=== PATIENT | female | born 1995 | race Caucasian/White ===

== ENCOUNTER 2019-02-03 12:27 | Inpatient (IN) | payer MEDICAID ==
[2019-02-03] MEDS ORDERED: LACTATED RINGERS 1,000 ML IV ONE (13:04)
[2019-02-03] MEDS ORDERED: LACTATED RINGERS 1,000 ML ONE ×2 (13:07→16:50)
--- NOTE | 2019-02-03 14:07 | Event Note ---
Date: 02/03/19 Speaks little mongolian, water/wastewater project manager at bedside, patient complains of contractions since early am and spotting, she has not had sex since 10/2018. Denies ROM. Cervix 1,scant old dark blood on glove, Cat 1 fht's. UC's irregular. GLORIA 03/02/2019 EGA 36 /7wga. IVF hydration, check US for abruption, CBC T7S, observe closely.
[2019-02-03 14:41] LABS: Hematocrit 33.9 % (30.3-42.9); Mean Corpuscular HGB Conc 32 % (30-34); Mean Corpuscular Volume 87 fl (79-97); Platelet Count 120 K/mm3 (140-440); Red Cell Distribution Width 14.3 % (13.2-15.2)
[2019-02-03 15:31] LABS: Bacteria,Urine 1+ /HPF (Negative); Bilirubin,Urine NEG (Negative); Blood,Urine LG (Negative); Color,Urine Yellow (Yellow); Urobilinogen,Urine < 2.0 mg/dL (<2.0)
--- NOTE | 2019-02-03 16:26 | Ultrasound Report ---
Limited OB Ultrasound HISTORY: patient with vaginal bleeding. TECHNIQUE: Grayscale and color Doppler imaging performed. COMPARISON: None FINDINGS: There is a single intrauterine gestation which is cephalic in presentation. MEGGAN is 14.5. Pl acenta is right lateral with no evidence of placenta previa. Heart rate is 133 bpm. Imaging to determ ine the age was not performed. IMPRESSION: Single viable intrauterine gestation as above. Signer Name: Shane Maldonado MD Signed: 02/03/2019 4:22 PM Workstation Name: [id number]
[2019-02-03] MEDS ORDERED: BRETHINE ONE (17:11)
[2019-02-03] MEDS ORDERED: REGLAN IV ONE (17:12)
[2019-02-03] MEDS ORDERED: BICITRA PO ONE (17:12)
[2019-02-03] MEDS ORDERED: PEPCID IV ONE (17:12)
--- NOTE | 2019-02-03 17:20 | History and Physical Report ---
History of Present Illness Date of examination: 02/03/19 (called to Triage pt c/o worsening pain) History of present illness: EDC Calculations LMP: 03/26/2019 Past History : 2 Term Births: 1 Premature Births: 0 Living Children: 1 Para: 1 Mult. Births: 0 Prev : 1 Aborta: 0 Elect. Ab: 0 Spont. Ab: 0 Ectopics: 0 # 1 Delivery date: 11/05/2016 Weeks Gestation: 38 labor: no Delivery type: Hours of labor: 18 Anesthesia type: epidural Delivery location: [facility] Sex: Male weight: 7-? Name: Rashad Comments: Pre-eclampsia/PROM Past Medical History: Negative Past Medical History Past Surgical History: (2016) Social History: Marital Status: Children: 1 Occupation: unemployed Risk Factors: Smoked Tobacco Use: Never smoker Drug use: no HIV high-risk behavior: low risk Alcohol use: no Past Medical History Surgery (Non-ext js developer): (2016) Abnormal PAP: negative Uterine Anomaly: negative Social Hx: Marital Status: Children: 1 Occupation: unemployed Infection History Hx of STD: none HIV Risk Eval: low risk Personal hx. of genital herpes: no Genetic History Congenital Heart Defect: Dad: unknown Jace Disease: Dad: unknown Thalassemia Dad: unknown Neural Tube Defect Dad: unknown Down's Syndrome Dad: unknown Jacob-Sachs Dad: unknown Sickle Cell Disease/Trait Dad: unknown Hemophilia Dad: unknown Muscular Dystrophy Dad: unknown Cystic Fibrosis Dad: unknown Joanne Chorea Dad: unknown Mental Retardation Dad: unknown Fragile X Dad: unknown Other Genetic/Chromosomal Disorder Dad: unknown Child w/other defect Dad: unknown Enviromental Exposures Xray Exposure: no Medication, drug, or alcohol use since LMP: no Chemical/Other Exposure: no Exposure to Cat Liter: no Active Medications (reviewed today): None Current Allergies (reviewed today): No known allergies Past History - Obstetrical History Expected Date of Delivery: 03/02/19 Actual Gestation: 36 Week(s) 1 Day(s) : 2 Para: 1 (PROM, Pre-E section) Hx # Term Pregnancies: 1 Number of Pregnancies: 0 Spontaneous Abortions: 0 Induced : 0 Number of Living Children: 1 Medications and Allergies Allergies Allergy/AdvReac Type Severity Reaction Status Date / Time No Known Allergies Allergy Unverified 02/03/19 13:04 Home Medications Medication Instructions Recorded Confirmed Last Taken Type No Known Home Medications [No 02/03/19 02/03/19 Unknown History Reported Home Medications] Active Meds: Active Medications Citric Acid/Sodium Citrate (Bicitra) 30 ml PO ONCE ONE Stop: 02/03/19 17:13 Famotidine (Pepcid) 20 mg IV ONCE ONE Stop: 02/03/19 17:13 Oxytocin/Sodium Chloride (Pitocin/Ns 20 Unit/1000ml Drip) 20 units in 1,000 mls @ 0 mls/hr IV TITR MOHIT Lactated Ringer's (Lactated Ringers) 1,000 mls @ 2,250 mls/hr IV PREOP MOHIT Stop: 02/04/19 18:27 Metoclopramide HCl (Reglan) 10 mg IV ONCE ONE Stop: 02/03/19 17:13 - Vital Signs Vital signs: Vital Signs Pulse BP 63 139/67 02/03/19 12:43 02/03/19 12:43 Temp Pulse Resp BP Pulse Ox 98.9 F 59 L 117/58 02/03/19 12:50 02/03/19 16:58 02/03/19 16:58 - Physical Exam Breasts: Positive: deferred Cardiovascular: Regular rate Lungs: Positive: Normal air movement Abdomen: Positive: normal appearance, soft, normal bowel sounds Genitourinary (Female): Positive: normal external genitalia Vagina: Positive: normal moisture Uterus: Positive: normal size Extremities: Positive: edema Deep Tendon Reflex Grade: Normal +2 - Obstetrical FHR: category 2 Uterine Contraction Monitor Mode: External Cervical Dilatation: 4 (blood tinged fluid Overall clear fluid) Cervical Effacement Percentage: 90 station: -1 Uterine Contraction Pattern: Irregular Uterine Tone Measurement Phase: Resting Uterine Contraction Intensity: Moderate Results Result Diagrams: 02/03/19 14:13 Abnormal lab results 02/03/19 02/03/19 Range/Units 14:13 15:15 Plt Count 120 L (140-440) K/mm3 Urine pH 8.0 H (5.0-7.0) All other labs normal. HBsAg Screen Negative Negative *1 RPR Non Reactive Non Reactive *2 Rubella Antibodies, IgG [L] <0.90 index Immune >0.99 *3 Non-immune <0.90 Equivocal 0.90 - 0.99 Immune >0.99 ABO Grouping O *4 Rh Factor Positive *5 Please note: Prior records for this patient's ABO / Rh type are not available for additional verification. Antibody Screen Negative Negative *6 WBC 7.5 x10E3/uL 3.4-10.8 *7 RBC 4.01 x10E6/uL 3.77-5.28 *8 Hemoglobin 11.1 g/dL 11.1-15.9 *9 Hematocrit 34.6 % 34.0-46.6 *10 MCV 86 fL 79-97 *11 MCH 27.7 pg 26.6-33.0 *12 MCHC 32.1 g/dL 31.5-35.7 *13 RDW 14.2 % 12.3-15.4 *14 Platelets 168 x10E3/uL 150-450 *15 Neutrophils 70 % Not Estab. *16 Lymphs 24 % Not Estab. *17 Monocytes 5 % Not Estab. *18 Eos 1 % Not Estab. *19 Basos 0 % Not Estab. *20 ! Immature Cells <No Reported Value> *21 Neutrophils (Absolute) 5.2 x10E3/uL 1.4-7.0 *22 Lymphs (Absolute) 1.8 x10E3/uL 0.7-3.1 *23 Monocytes(Absolute) 0.4 x10E3/uL 0.1-0.9 *24 Eos (Absolute) 0.1 x10E3/uL 0.0-0.4 *25 Baso (Absolute) 0.0 x10E3/uL 0.0-0.2 *26 ! Immature Granulocytes 0 % Not Estab. *27 ! Immature Grans (Abs) 0.0 x10E3/uL 0.0-0.1 *28 ! NRBC <No Reported Value> *29 Hematology Comments: <No Reported Value> *30 Tests: (2) Cystic Fibrosis Profile (032961) ! CF, Screen Comment: *31 RESULTS: Negative for 32 mutations analyzed Tests: (3) HB Solu + Rflx Fra (447558) Hemoglobin (Hgb) Solubility Negative Negative *33 Tests: (4) Panel 606548 (383849) HIV Screen 4th Generation wRfx Non Reactive Non Reactive *34 Tests: (5) Gest. Diabetes 1-Hr Screen (033433) ! Gestational Diabetes Screen [H] 194 mg/dL 65-139 *35 Tests: (6) HCV Ab w/Rflx to Verification (658955) ! HCV Ab 0.1 s/co ratio 0.0-0.9 *36 Tests: (7) Comment: (785514) ! Comment: SPRCS *37 Non reactive HCV antibody screen is consistent with no HCV infection, unless recent infection is suspected or other evidence exists to indicate HCV infection. Assessment and Plan 23yo @ 36 weeks labor PPROM previous section Pt presented to triage with c/o pain SVE 1 cm on arrival Pt is now ruptured clear SVE 4,90,- 1 Pt being prepped for section. aware. Terb given due to freq ctx Pt consented. - Patient Problems (1) Insufficient care in third trimester Onset Date: ~02/03/19 Current Visit: Yes Status: Acute (2) Previous section Onset Date: ~02/03/19 Current Visit: Yes Status: Acute (3) 36 weeks gestation of Onset Date: ~02/03/19 Current Visit: Yes Status: Acute (4) Premature rupture of membranes Onset Date: ~02/03/19 Current Visit: Yes Status: Acute
[2019-02-03] MEDS ORDERED: BRETHINE SUB-Q ONE (17:29)
[2019-02-03] MEDS ORDERED: LACTATED RINGERS 1,000 ML IV SCH ×2 (18:00→21:03)
[2019-02-03] MEDS ORDERED: PITOCin/NS 20 UNIT/1000ML DRIP 20 UNITS/1,000 ML BAG IV SCH ×2 (18:00→21:03)
[2019-02-03] MEDS ORDERED: ANCEF/STERILE WATER 2 GM/20 ML 2 GM/20 ML SYRINGE IV NR (18:00)
--- NOTE | 2019-02-03 18:12 | Progress Note ---
Assessment and Plan pt comfortable with epidural SVE 6,100,-[address]Royster huerta. - Patient Problems (1) Insufficient care in third trimester Onset Date: ~02/03/19 Current Visit: Yes Status: Acute (2) Previous section Onset Date: ~02/03/19 Current Visit: Yes Status: Acute (3) 36 weeks gestation of Onset Date: ~02/03/19 Current Visit: Yes Status: Acute (4) Premature rupture of membranes Onset Date: ~02/03/19 Current Visit: Yes Status: Acute Subjective - Subjective Date of service: 02/03/19 (epidural placed) Interval history: EDC Calculations LMP: 03/26/2019 Past History : 2 Term Births: 1 Premature Births: 0 Living Children: 1 Para: 1 Mult. Births: 0 Prev : 1 Aborta: 0 Elect. Ab: 0 Spont. Ab: 0 Ectopics: 0 # 1 Delivery date: 11/05/2016 Weeks Gestation: 38 labor: no Delivery type: Hours of labor: 18 Anesthesia type: epidural Delivery location: [facility] Sex: Male weight: 7-? Name: Rashad Comments: Pre-eclampsia/PROM Past Medical History: Negative Past Medical History Past Surgical History: (2016) Social History: Marital Status: Children: 1 Occupation: unemployed Risk Factors: Smoked Tobacco Use: Never smoker Drug use: no HIV high-risk behavior: low risk Alcohol use: no Past Medical History Surgery (Non-tower helper): (2016) Abnormal PAP: negative Uterine Anomaly: negative Social Hx: Marital Status: Children: 1 Occupation: unemployed Infection History Hx of STD: none HIV Risk Eval: low risk Personal hx. of genital herpes: no Genetic History Congenital Heart Defect: Dad: unknown Jace Disease: Dad: unknown Thalassemia Dad: unknown Neural Tube Defect Dad: unknown Down's Syndrome Dad: unknown Jacob-Sachs Dad: unknown Sickle Cell Disease/Trait Dad: unknown Hemophilia Dad: unknown Muscular Dystrophy Dad: unknown Cystic Fibrosis Dad: unknown Yadkin Chorea Dad: unknown Mental Retardation Dad: unknown Fragile X Dad: unknown Other Genetic/Chromosomal Disorder Dad: unknown Child w/other defect Dad: unknown Enviromental Exposures Xray Exposure: no Medication, drug, or alcohol use since LMP: no Chemical/Other Exposure: no Exposure to Cat Liter: no Active Medications (reviewed today): None Current Allergies (reviewed today): No known allergies Patient reports: vaginal bleeding (fluid is blood tinged), movement normal Objective - Vital Signs Vital Signs: Vital Signs - 12hr 02/03/19 02/03/19 02/03/19 12:43 12:50 16:27 Temperature 98.9 F Pulse Rate 63 60 Blood Pressure 139/67 142/82 02/03/19 02/03/19 02/03/19 16:58 17:47 17:53 Temperature Pulse Rate 59 L 79 91 H Blood Pressure 117/58 112/59 119/64 02/03/19 02/03/19 02/03/19 17:56 18:00 18:02 Temperature Pulse Rate 83 74 78 Blood Pressure 133/67 114/58 122/62 02/03/19 18:06 Temperature Pulse Rate 100 H Blood Pressure 100/59 - Exam Breasts: deferred Cardiovascular: Regular rate Lungs: Normal air movement Abdomen: Present: normal appearance, soft. Absent: distention, tenderness Uterus: Present: normal FHR: auscultation normal, category 2 Uterine Contraction Monitor Mode: Internal Cervical Dilatation: 6 (ISE applied) Cervical Effacement Percentage: 100 station: -2 Uterine Contraction Pattern: Irregular Uterine Tone Measurement Phase: Resting Uterine Contraction Intensity: Moderate (terb given X 2 doses) Extremities: edema Deep Tendon Reflex Grade: Normal +2 - Labs Labs: Abnormal Labs 02/03/19 02/03/19 14:13 15:15 Plt Count 120 L Urine pH 8.0 H Laboratory Results - last 24 hr 02/03/19 02/03/19 02/03/19 14:13 14:13 15:15 WBC 8.6 RBC 3.90 Hgb 11.0 Hct 33.9 MCV 87 MCH 28 MCHC 32 RDW 14.3 Plt Count 120 L Urine Color Yellow Urine Turbidity Cloudy Urine pH 8.0 H Ur Specific Antonito 1.014 Urine Protein 100 mg/dl Urine Glucose (UA) Neg Urine Ketones Neg Urine Blood Lg Urine Nitrite Neg Urine Bilirubin Neg Urine Urobilinogen < 2.0 Ur Leukocyte Esterase Tr Urine WBC (Auto) 3.0 Urine RBC (Auto) 4.0 U Epithel Cells (Auto) 5.0 Urine Bacteria (Auto) 1+ Blood Type O POSITIVE Antibody Screen Negative
--- NOTE | 2019-02-03 18:19 | Anesthesia Consultation ---
Anesthesia Consult and Med Hx Date of service: 02/03/19 - Airway Anesthetic Teeth Evaluation: Good ROM Head & Neck: Adequate Mental/Hyoid Distance: Adequate Mallampati Class: Class II Intubation Access Assessment: Good - Pulmonary Exam CTA: Yes - Cardiac Exam Cardiac Exam: RRR - Pre-Operative Health Status ASA Pre-Surgery Classification: ASA2, Emergency Proposed Anesthetic Plan: Epidural - Pulmonary Hx Smoking: No Hx Asthma: No - Cardiovascular System Hx Hypertension: No - Central Nervous System Hx Neuromuscular Disorder: No
--- NOTE | 2019-02-03 18:19 | Anesthesia Day of Surgery ---
Anesthesia Day of Surgery - Day of Surgery Patient Examined: Yes Patient H&P Reviewed: Yes Patient is NPO: Yes
[2019-02-03] MEDS ORDERED: ZOFRAN ONE (18:51)
[2019-02-03] MEDS ORDERED: BENADRYL ONE (18:51)
[2019-02-03] MEDS ORDERED: DILAUDID ONE (19:20)
[2019-02-03] MEDS ORDERED: PHENERGAN PO PRN (19:29)
[2019-02-03] MEDS ORDERED: NARCAN 0.4 MG/1 ML IV PRN ×2 (19:29→21:03)
[2019-02-03] MEDS ORDERED: MORPHINE IV PRN ×3 (19:29→21:03)
[2019-02-03] MEDS ORDERED: ZOFRAN IV PRN ×2 (19:29→21:03)
[2019-02-03] MEDS ORDERED: PHENERGAN PR PRN (19:29)
[2019-02-03] MEDS ORDERED: DILAUDID IV PRN ×2 (19:29)
--- NOTE | 2019-02-03 19:29 | Post Operative Note ---
Pre-op diagnosis: IUP@36wga, PTL, prev c/s desires c/s Post-op diagnosis: same Anesthesia: epidural Surgeon: LILLIAM GUPTA Estimated blood loss: other (800) Condition: stable Disposition: PACU
--- NOTE | 2019-02-03 19:30 | Post Anesthesia Evaluation ---
- Post Anesthesia Evaluation Patient Participated: Yes Airway Patent: Yes Stable Respiratory Function: Yes Nausea/Vomiting: No Temp > 96.8F: Yes Pain Manageable: Yes Adequeate Hydration: Yes Anesthesia Complications: No Block Receding Appropriately: Yes Patient on Ventilator: No
[2019-02-03] MEDS ORDERED: SODIUM CHLORIDE FLUSH SYRINGE 10 ML IV NR ×2 (20:00→21:03)
[2019-02-03] MEDS ORDERED: TUCKS PAD TP PRN (21:03)
[2019-02-03] MEDS ORDERED: TORADOL IV PRN (21:03)
[2019-02-03] MEDS ORDERED: MILK OF MAGNESIA PO PRN (21:03)
[2019-02-03] MEDS ORDERED: MYLICON PO PRN (21:03)
[2019-02-03] MEDS ORDERED: TYLENOL PO PRN (21:03)
[2019-02-03] MEDS ORDERED: SENOKOT PO PRN (21:03)
[2019-02-03] MEDS ORDERED: LANSINOH TP PRN (21:03)
--- NOTE | 2019-02-03 22:35 | Operative Report ---
Operative Report Operative Report: Date: 02/03/2019 Preoperative diagnosis: 1. Intrauterine at 36 weeks 2. labor 3. Previous delivery desires repeat delivery Postoperative diagnosis: 1. Intrauterine at 36 weeks 2. labor 3. Previous delivery desires repeat delivery Procedure: Low uterine transverse incision for delivery Surgeon: Daniela Ny MD Medical Coding Technician: Breonna Little CNM Anesthesia: Epidural Anesthesiologist: Dr. Wright Estimated blood loss: 800 mL Urine out: 100 mL Findings: Live born male infant. Weight 7 lbs. 7 oz. Apgars 8 at 1 minute and 9 at 5 minutes. Uterus grossly normal, tubes grossly normal, ovaries grossly normal. Procedure: After risk, benefits, complications, consequences and alternatives for this procedure were discussed with patient and consents were reviewed and signed, she was taken to the OR where epidural anesthesia was placed. She was then placed in the left lateral tilt position, and prepped and draped in the usual sterile fashion. Timeout was performed, and an appropriate level of anesthesia was noted, a Pfannenstiel incision was made and extended to the fascia which was incised and extended in the lateral directions. The overlying fascia was sharply dissected away from the underlying rectus muscles in the superior and inferior directions. The midline was entered bluntly. The vesicouterine fold was incised and with blunt dissection the bladder flap was created. A transverse incision was made in the lower uterine segment and extended in superiolateral direction with finger fractionation. Copious clear fluid was noted. The was delivered from cephalic position with nuchal cord 2 at least overnight.. Mouth and nose were bulb suctioned. Spontaneous cry and excellent tone were noted. Cord was doubly clamped and cut. The was given to /resuscitation team present. The placenta was manually extracted. The uterus was then exteriorized and cleared of any further products of conception or placental tissue. The incision was reapproximated using 0 Vicryl in a running interlocking stitch. Grossly normal uterus, tubes and ovaries were noted. Once hemostasis was noted, the uterus was allowed back into the pelvic cavity. The pelvis was irrigated with warm normal saline. Again hemostasis was noted . Surgicel applied for further hemostasis. Interceed was then placed to prevent adhesions. Then attention was turned to the rectus muscles. The rectus muscles reapproximated using 0 Vicryl in a simple interrupted stitch x 3. Once hemostasis was noted, the fascia was reapproximated using 0 Vicryl running stitch fashion. Once hemostasis was noted skin incision was reapproximated using 4-0 Vicryl on a Surjit needle in a subcuticular manner. Counts were correct 3. Patient tolerated procedure well state recovery room in stable condition.
[2019-02-03] MEDS: TORADOL IV PRN (23:20)
[2019-02-04] MEDS: ANCEF/NS 1 GM/50 ML 1 GM/50 ML BAG IV SCH ×2 (05:12→12:25)
[2019-02-04] MEDS: TORADOL IV PRN (05:12)
[2019-02-04] MEDS ORDERED: BOOSTRIX IM ONE (06:00)
[2019-02-04 07:16] LABS: Hematocrit 26.3 % (30.3-42.9); Hemoglobin 8.7 gm/dl (10.1-14.3)
--- NOTE | 2019-02-04 08:51 | Progress Note ---
Assessment and Plan patient resting, no complaints. Dressing D&I, VSSAF, postop H&H 8.7/26.3 (asymptomatic anemia from acute blood loss.) Continue current postop pathway. - Patient Problems (1) Previous section Onset Date: ~02/03/19 Current Visit: Yes Status: Acute (2) Anemia due to blood loss, acute Current Visit: Yes Status: Acute Subjective - Subjective Date of service: 02/04/19 Principal diagnosis: POD #1 s/p repeat c/s Patient reports: appetite normal, voiding normally, pain well controlled, flatus, ambulating normally, no dizzy ambulation, no nauseated : doing well, bottle feeding Objective - Vital Signs Latest vital signs: Vital Signs Temp Pulse Resp BP BP Pulse Ox 02/04/19 05:12 18 02/04/19 04:00 98.7 F 66 18 118/76 02/04/19 01:59 18 02/04/19 00:30 98.7 F 77 18 101/67 02/03/19 23:20 18 02/03/19 21:10 98.0 F 85 18 124/56 98 02/03/19 20:11 83 14 118/69 97 02/03/19 19:57 89 16 131/65 97 02/03/19 19:45 86 18 120/67 97 02/03/19 19:30 88 16 119/62 97 02/03/19 19:23 97.4 F L 100 H 18 102/56 97 02/03/19 18:24 77 90/52 02/03/19 18:23 95 H 90/45 02/03/19 18:20 98 H 99/50 100 02/03/19 18:17 78 102/51 02/03/19 18:14 88 100/51 02/03/19 18:11 86 106/60 02/03/19 18:09 88 106/59 02/03/19 18:06 100 H 100/59 02/03/19 18:02 78 122/62 02/03/19 18:00 74 114/58 100 02/03/19 17:56 83 133/67 02/03/19 17:53 91 H 119/64 02/03/19 17:47 79 112/59 02/03/19 16:58 59 L 117/58 02/03/19 16:27 60 142/82 02/03/19 12:50 98.9 F 02/03/19 12:43 63 139/67 Intake and Output 02/03/19 02/04/19 02/04/19 23:59 07:59 15:59 Intake Total 1150 300 Output Total 500 Balance 650 300 Intake: IV 1150 Intake, Free Water 300 Output: Urine 500 Uretheral (Mckeon) 200 Other: Estimated Blood Loss 800 - Exam Breasts: Present: normal Cardiovascular: Present: Regular rate Lungs: Present: Clear to auscultation, Normal air movement Abdomen: Present: normal appearance, soft Vulva: both: normal Uterus: Present: normal, firm, fundal height at umbilicus Extremities: Present: normal Incision: Present: normal, dry, intact - Labs Labs: Abnormal lab results 02/03/19 02/03/19 02/04/19 Range/Units 14:13 15:15 06:59 Hgb 8.7 L (10.1-14.3) gm/dl Hct 26.3 L D (30.3-42.9) % Plt Count 120 L (140-440) K/mm3 Urine pH 8.0 H (5.0-7.0)
[2019-02-04] MEDS: IBUPROFEN PO PRN ×2 (13:14→20:34)
[2019-02-04] MEDS: PERCOCET 5/325 PO PRN ×2 (13:16→20:34)
[2019-02-04] MEDS ORDERED: FEOSOL PO ONE (17:25)
[2019-02-04] MEDS: FEOSOL PO SCH ×2 (17:26→21:45)
[2019-02-05] MEDS: IBUPROFEN PO PRN ×3 (06:30→20:01)
[2019-02-05] MEDS: PERCOCET 5/325 PO PRN ×3 (06:31→20:01)
[2019-02-05] MEDS ORDERED: M-M-R II VACCINE SUB-Q ONE (09:04)
[2019-02-05] MEDS: COLACE PO SCH ×2 (10:36→23:21)
[2019-02-05] MEDS: FEOSOL PO SCH ×2 (10:36→23:21)
--- NOTE | 2019-02-05 13:44 | Progress Note ---
Assessment and Plan Patient resting in bed, reports feeling well, she denies any complaints or concerns. Fundus is firm, ML, U/1, vaginal bleeding is small, patient denies any heavy bleeding or clots. Incision is well-approximated, healing well, no bleeding or drainage noted, no s/s infection. Incision care/hygiene DWP. Patient reports pain is well controlled with medications. Reviewed post delivery H&H with patient, she denies any dizziness or feeling faint with ambulation or position changes. Fe ordered. VSSAF. Continue post op pathway at this time. Will plan for discharge tomorrow AM. Subjective - Subjective Date of service: 02/05/19 Principal diagnosis: POD #2 s/p repeat c/s Patient reports: appetite normal, voiding normally, pain well controlled, ambulating normally Halsey: doing well Objective - Vital Signs Latest vital signs: Vital Signs Temp Pulse Resp BP Pulse Ox 02/05/19 07:31 98.6 F 66 16 107/62 93 02/04/19 23:27 98.5 F 77 20 108/50 97 02/04/19 16:58 97.9 F 72 18 116/65 97 Intake and Output 02/04/19 02/05/19 02/05/19 23:59 07:59 15:59 Intake Total 1320 120 Output Total 450 Balance 870 120 Intake: Oral 720 120 Intake, Free Water 600 Output: Urine 450 Void 450 Other: Total, Intake Amount 240 120 Total, Output Amount 450 # Voids Void 1 1 1 - Exam Breasts: Present: normal Cardiovascular: Present: Regular rate, Normal S1, Normal S2 Lungs: Present: Clear to auscultation, Normal air movement Abdomen: Present: normal appearance, soft, normal bowel sounds Vulva: both: normal Uterus: Present: normal, firm, fundal height below umbilicus Extremities: Present: normal Incision: Present: normal, dry, intact
[2019-02-06] MEDS: IBUPROFEN PO PRN (04:46)
[2019-02-06] MEDS: PERCOCET 5/325 PO PRN (04:47)
[2019-02-06] MEDS: COLACE PO SCH (10:00)
[2019-02-06] MEDS: FEOSOL PO SCH (10:00)
--- NOTE | 2019-02-06 12:31 | Discharge Summary ---
Providers - Providers Date of Admission: 02/03/19 17:41 Date of discharge: 02/06/19 (pt requesting d/c home today) Attending physician: LILLIAM GUPTA 02/03/19 21:03 Consult to Case Management [CONS] Routine Services Needed at Discharge: Kit Assembler Notified:: yes Phone number called:: [phone] Was contact made?: Yes If yes, spoke with:: elida Time called:: 15:41 Comment:: left message Consult to Technical Service Engineer [CONS] Routine Reason For Exam: Primary care physician: LILLIAM GUPTA Hospitalization Reason for admission: Labor, prev c/s Condition: Good Pertinent studies: postop H&H 8.7/26.3, asymptomatic anemia from acute blood loss Procedures: repeat c/s Hospital course: uncomplicated c/s and postop course Disposition: DC-01 TO HOME OR SELFCARE - Discharge Diagnoses (1) Previous section Status: Acute (2) Anemia due to blood loss, acute Status: Acute Core Measure Documentation - Palliative Care Palliative Care/ Comfort Measures: Not Applicable - Core Measures Any of the following diagnoses?: none Exam - Constitutional Vitals: Temp Pulse Resp BP Pulse Ox 97.8 F 61 20 123/72 96 02/06/19 09:01 02/06/19 09:01 02/06/19 09:01 02/06/19 09:01 02/06/19 09:01 General appearance: Present: no acute distress, well-nourished - EENT Eyes: Present: PERRL ENT: hearing intact, clear oral mucosa - Neck Neck: Present: supple, normal ROM - Respiratory Respiratory effort: normal Respiratory: bilateral: CTA - Cardiovascular Heart Sounds: Present: S1 & S2. Absent: rub, click - Extremities Extremities: pulses symmetrical, No edema Peripheral Pulses: within normal limits - Abdominal General gastrointestinal: Present: soft, non-tender, non-distended, normal bowel sounds Female genitourinary: Present: normal - Integumentary Integumentary: Present: clear, warm, dry - Musculoskeletal Musculoskeletal: gait normal, strength equal bilaterally - Psychiatric Psychiatric: appropriate mood/affect, intact judgment & insight - Neurologic Neurologic: CNII-XII intact, moves all extremities - Additional findings Additional findings: lochia scant, fundus firm, incision D&I Plan Activity: advance as tolerated Diet: regular Wound: open to air, keep clean and dry Follow up with: LILLIAM GUPTA MD [Primary Care Provider] - 7 Days (Congratulations! Please call [phone] to schedule your in incision check in 1 week. Call for any questions or concerns.) Forms: [facility] Discharge Summary, Discharge Signature Page Prescriptions: Docusate Sodium [Colace] 100 mg PO BID PRN #60 capsule PRN Reason: Constipation Lidocain2.5%/Prilocai2.5% [Emla] 5 gm TP ONCE #1 tube Ferrous Sulfate [Feosol 325 MG tab] 325 mg PO BID #60 tablet Ibuprofen [Motrin 800 MG tab] 800 mg PO TID PRN #30 tablet PRN Reason: Pain oxyCODONE /ACETAMINOPHEN [Percocet 5/325 mg] 1 - 2 tab PO Q4HR PRN #20 tablet PRN Reason: Pain
[2019-02-06 14:23] VITALS: BP 140/83
== END 2019-02-06 14:15 | disposition home or self-care (01) | DRG 765 ==
LOC: TRG 12:27 → APU 17:41 → OB 20:50
PROVIDERS: ADMIT Obstetrics & Gynecology; ATTEND Obstetrics & Gynecology
PROC: 10D00Z1 Extraction of Products of Conception, Low, Open Approach (ICD-10-PCS; principal; 2019-02-03)
PROC: 3E0234Z Introduction of Serum, Toxoid and Vaccine into Muscle, Percutaneous Approach (ICD-10-PCS; 2019-02-03)
PROC: 3E0134Z Introduction of Serum, Toxoid and Vaccine into Subcutaneous Tissue, Percutaneous Approach (ICD-10-PCS; 2019-02-03)
DX: O42.013 Preterm premature rupture of membranes, onset of labor within 24 hours of rupture, third trimester (principal); D62 Acute posthemorrhagic anemia; O99.02 Anemia complicating childbirth; O34.219 Maternal care for unspecified type scar from previous cesarean delivery; Z3A.36 36 weeks gestation of pregnancy; Z37.0 Single live birth; Z56.0 Unemployment, unspecified; Z23 Encounter for immunization
CPT/HCPCS: 36415; 76815; 81001; 85014; 85018; 85027; 86850; 86900; 86901; 90715; G0378; J0690; J1170; J1200; J1885; J2270; J2405; J2590; J2765; J3105; J7120